=== PATIENT | female | born 1955 ===

== ENCOUNTER 2018-07-25 14:12 | Emergency (ER) | payer OTHER ==
[2018-07-25 14:15] VITALS: BP 176/96; PULSE 92; RESP 18; TEMP 97.2; O2SAT 98
[2018-07-25] MEDS ORDERED: Lidocaine 5% Patch TD STA (14:47)
[2018-07-25] MEDS ORDERED: Lidocaine 5% Patch TD ONE (14:56)
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
== END 2018-07-25 17:05 | disposition home or self-care (01) ==
LOC: C.ER 14:12
DX: T14.8XXA Other injury of unspecified body region, initial encounter (principal); V09.3XXA Pedestrian injured in unspecified traffic accident, initial encounter; Y92.410 Unspecified street and highway as the place of occurrence of the external cause